=== PATIENT | male | born 1945 | race Two or more races ===

== ENCOUNTER 2018-01-29 19:11 | Inpatient (IN) | payer MEDICARE, MEDICAID ==
[2018-01-29 21:08] VITALS: BP 133/64
[2018-01-29] MEDS ORDERED: Non-Formulary Item 1 EA (Clonidine Hcl [Clonidine Hcl] 0.2 MG) PO PRN (22:42)
[2018-01-29] MEDS ORDERED: Polyvinyl Alcohol Ophth Soln 15 mL Bottle EACH EYE PRN (23:13)
[2018-01-30 06:36] LABS: CHOLESTEROL 140 mg/dL (<200); HDL -HIGH DENSITY LIPOPROTEIN 31 mg/dL (23-92); TRIGLYCERIDES 112 mg/dL (<150)
[2018-01-30] MEDS ORDERED: Levothyroxine 0.1 Mg Tab PO SCH (09:00)
[2018-01-30] MEDS ORDERED: MAGNESIUM OXIDE 400 MG PO SCH (09:00)
[2018-01-30] MEDS: Levothyroxine 0.1 Mg Tab PO SCH (09:26)
[2018-01-30] MEDS: Ferrous Sulfate 325 MG TAB PO SCH (09:28)
[2018-01-30] MEDS: Multivitamin Tab PO SCH (09:28)
[2018-01-30] MEDS: Atorvastatin Calcium 10 MG TAB PO SCH (20:28)
--- NOTE | 2018-01-30 21:06 | Psychiatric Evaluation ---
DATE OF SERVICE: 01/30/2018 JUSTIFICATION FOR HOSPITALIZATION: Confused, suspicious, striking out at staff. CHIEF COMPLAINT: "My name is Fidel." HISTORY OF PRESENT ILLNESS: A 73-year-old male, selectively mute, confused, dementia per documentation, noted to be striking out at nursing staff, unable to be cared for at a lower level of care, refusing to answer some questions, just telling me his name, essentially refusing to speak with me, drinking his coffee. Apparently, also with suicidal thoughts, refusing medications. PAST PSYCHIATRIC HISTORY: Dementia. SOCIAL HISTORY: The patient coming from what appears to be a [facility] facility. Unclear family support and involvement. CHEMICAL DEPENDENCY HISTORY: Unclear. MEDICATIONS: Noted. MEDICAL HISTORY: CHF, hypertension, hyperlipidemia, diabetes, GERD, BPH, CVA, anemia, hypothyroidism, seizure disorder, dementia. MENTAL STATUS EXAMINATION: Stated age. Fair eye contact. Awake, alert, only telling me his name, confused, disoriented, mumbling to self. No overt SI or HI, although the patient apparently came in with SI, unclear psychotic symptoms. Poor insight and judgment, poor impulse control. PROVISIONAL DIAGNOSES: Dementia, dementia with behaviors; psychosis, unspecified; mood, unspecified; anxiety, unspecified. MEDICAL: Please see full H and P. ESTIMATED LENGTH OF STAY: 5-7 days. ASSESSMENT: The patient combative, agitated, lashing out SI. PLAN: We will titrate and adjust medications. TREATMENT PLAN: Includes group as well as milieu therapy. CONDITIONS FOR DISCHARGE: Improved mood, improved affect, cessation of any SI, better control of her agitation. JOB# [id number]
--- NOTE | 2018-01-31 00:38 | History & Physical ---
ADMIT DATE: 01/30/2018 INTERNAL MEDICINE CONSULTATION The patient is a 73-year-old male, me being primary care physician, known to me. PAST MEDICAL HISTORY: Significant for CHF, hypertension, coronary artery disease, seizure disorder, hypothyroidism, peptic ulcer disease, enlarged prostate, arthritis, osteoporosis, hyperlipidemia and anemia. SOCIAL HISTORY: No history of smoking or alcohol abuse. FAMILY HISTORY: Not available. REVIEW OF SYSTEMS: The patient is very agitated. No recent seizure activity. Gait is unstable. No chest pain, no nausea, no vomiting, no abdominal pain. OBJECTIVE: VITAL SIGNS: Stable. LUNGS: Clear. HEART: First and second heart sounds are normal. No gallops. Systolic present. ABDOMEN: Soft, bowel sounds present and good. EXTREMITIES: Show arthritis. NEUROLOGIC: The patient is confused. MEDICAL DIAGNOSES: Include hypertension, CHF, coronary artery disease, seizure disorder, hypothyroidism, peptic ulcer disease, gastritis, arthritis, osteoporosis, enlarged prostate, hyperlipidemia and anemia. CURRENT MEDICATIONS: Include levothyroxine, Flomax, Keppra, Lasix, iron, Coreg, Lotensin, Lipitor, vitamin C, Norvasc, and Tylenol. JOB# [id number]
[2018-01-31] MEDS: Multivitamin Tab PO SCH (08:25)
[2018-01-31] MEDS: Ferrous Sulfate 325 MG TAB PO SCH (08:25)
[2018-01-31] MEDS: Sulfamethoxazole/TMP 800/160mg Tab PO SCH ×2 (09:10→17:08)
[2018-01-31] MEDS: Levothyroxine 0.1 Mg Tab PO SCH (09:10)
[2018-01-31] MEDS: Atorvastatin Calcium 10 MG TAB PO SCH (21:03)
--- NOTE | 2018-02-01 02:22 | Progress Notes ---
DATE: 01/31/2018 SUBJECTIVE: The patient in the hospital, striking out at staff, selectively mute, demented, thought blocking. The patient remains symptomatic. He is allowing changing, allowing ADLs, poorly oriented, disoriented, highly impulsive, irritable, mostly keeps to himself, seems to be mumbling to self, guarded, suspicious. At times, striking out at staff. At times, throwing water at staff, difficult to understand. ASSESSMENT: The patient remains symptomatic, still lashing out at staff, aggressive towards staff. PLAN: We will continue to monitor. The patient is with ongoing aggressive behaviors, violent behaviors. We will continue to monitor, continue Depakote. Consider the addition of Janine Colmenares. JOB# [id number]
[2018-02-01] MEDS: Multivitamin Tab PO SCH (09:18)
[2018-02-01] MEDS: Levothyroxine 0.1 Mg Tab PO SCH (09:18)
[2018-02-01] MEDS: Sulfamethoxazole/TMP 800/160mg Tab PO SCH ×2 (09:19→16:53)
[2018-02-01] MEDS: Ferrous Sulfate 325 MG TAB PO SCH (09:20)
[2018-02-01] MEDS ORDERED: Probiotic Screen MC PRN (11:00)
--- NOTE | 2018-02-01 18:32 | Progress Notes ---
DATE: 02/01/2018 INTERNAL MEDICINE CONSULTATION FOLLOWUP SUBJECTIVE: The patient is a 73-year-old male. Current medical problems include hypertension, CHF, coronary artery disease, seizure disorder, hypothyroidism, peptic ulcer disease, gastritis, arthritis, enlarged prostate, hyperlipidemia, and anemia symptoms. No new symptoms. No seizure activity, no vomiting, no diarrhea, no melena, no hematochezia. PHYSICAL EXAMINATION VITAL SIGNS: Stable. LUNGS: Clear. HEART: First and second heart sound normal. No gallop. Systolic murmur present. ABDOMEN: Soft, minimal epigastric tenderness. Bowel sounds are present and good. EXTREMITIES: Show arthritis. NEUROLOGIC: The patient has no focal motor deficits. MEDICAL DIAGNOSES: Remain the same. PLAN: Continue current medical management. Psych consult reviewed. JOB# [id number]
[2018-02-01] MEDS: Atorvastatin Calcium 10 MG TAB PO SCH (22:00)
--- NOTE | 2018-02-01 23:33 | Progress Notes ---
DATE: 02/01/2018 Dr. Cabezas covering for Dr. Kong. SUBJECTIVE: Chart reviewed and the patient interviewed. Also discussed the patient's condition with the staff and reviewed records and labs. The patient is still aggressive and he has episodes of striking out at staff. He also is still forgetful, still confused, and needs lots of redirections. Also, gets agitated especially when staff tried to help him with his ADLs, but at the same time, he allows staff to do so. The patient also is still agitated, withdrawn, and minimum interaction with others. He also still needs lots of redirections because of his agitation and aggression. ASSESSMENT: The patient is still psychotic and aggressive. TREATMENT PLAN: Continue to monitor his behavior and his condition closely. Also, continue working on his irritable mood and anger and continue to follow up closely. JOB# [id number]
--- NOTE | 2018-02-02 06:41 | Progress Notes ---
DATE: SUBJECTIVE: Chart reviewed and the patient interviewed. Also discussed the patient's condition with the staff and reviewed records and labs. The patient continued to be in irritable and angry mood. The patient also is still extremely agitated and restless and he is having difficulty with controlling his temper. The patient also seems to be depressed. He is still having intermittent thoughts of suicide and he is still having severe mood swings. He also feels hopeless. Also, gets with the staff during helping him with his ADLs. Otherwise, the patient is compliant with taking his medications with no side effects. ASSESSMENT: The patient is still aggressive and agitated. TREATMENT PLAN: Depakote blood level on 01/30/2018 was less than 10. We will increase Depakote to 500 mg twice a day and also we will start the patient on Seroquel 25 mg twice a day and we will continue to follow up his behavior and his condition closely. JOB# [id number]
--- NOTE | 2018-02-02 10:36 | Progress Notes ---
DATE: 02/02/2018 INTERNAL MEDICINE CONSULTATION FOLLOWUP SUBJECTIVE: The patient is a 73-year-old male. CURRENT MEDICAL: Include hypertension, CHF, coronary artery disease, seizure disorder, hypothyroidism, peptic ulcer disease, arthritis, enlarged prostate, anemia and hyperlipidemia. CHIEF COMPLAINT: No new symptoms. OBJECTIVE: VITAL SIGNS: Stable. LUNGS: Clear. HEART: First and second heart sounds are normal. No gallop. Systolic present. ABDOMEN: Soft. Bowel sounds are present and good. EXTREMITIES: Show arthritis. NEUROLOGIC: The patient has no additional focal deficit. Continue current medical management. Psych consult reviewed. JOB# [id number]
[2018-02-02] MEDS: Sulfamethoxazole/TMP 800/160mg Tab PO SCH ×3 (12:11→18:16)
[2018-02-02] MEDS: Multivitamin Tab PO SCH (12:26)
[2018-02-02] MEDS: Levothyroxine 0.1 Mg Tab PO SCH (12:26)
[2018-02-02] MEDS: Lactobacillus Rhamnosus GG 15 Billion CFU CAP.SPRINK PO SCH (18:14)
[2018-02-02] MEDS: Ferrous Sulfate 325 MG TAB PO SCH (18:14)
[2018-02-03] MEDS: Atorvastatin Calcium 10 MG TAB PO SCH ×2 (06:02→21:52)
[2018-02-03] MEDS: Ferrous Sulfate 325 MG TAB PO SCH (09:02)
[2018-02-03] MEDS: Lactobacillus Rhamnosus GG 15 Billion CFU CAP.SPRINK PO SCH (09:03)
[2018-02-03] MEDS: Multivitamin Tab PO SCH (09:04)
[2018-02-03] MEDS: Levothyroxine 0.1 Mg Tab PO SCH (09:04)
[2018-02-03] MEDS: Sulfamethoxazole/TMP 800/160mg Tab PO SCH ×2 (09:05→16:23)
--- NOTE | 2018-02-03 20:01 | Progress Notes ---
DATE: 02/03/2018 SUBJECTIVE: A 73-year-old male whose current medical problems include hypertension, CHF, coronary artery disease, seizure disorder, hypothyroidism, peptic ulcer disease, gastritis, arthritis, enlarged prostate, bipolar, hyperlipidemia and anemia symptoms. No new symptoms. No seizure activity, no vomiting, no diarrhea, no melena or hematochezia. No recent fall. OBJECTIVE: VITAL SIGNS: Stable. LUNGS: Clear. HEART: First and second heart sounds normal, ___ systolic present. ABDOMEN: Soft. Bowel sounds good. EXTREMITIES: Show arthritis. NEUROLOGIC: The patient has dementia. PLAN: Continue current medical management. Psych consult reviewed. JOB# [id number]
--- NOTE | 2018-02-03 22:05 | Progress Notes ---
DATE: 02/03/2018 SUBJECTIVE: Chart reviewed and the patient interviewed. Also, discussed the patient's condition with the staff and reviewed the records and labs. The patient still has periods of agitation and irritability. The patient also is still withdrawn. Also, still verbally abusive to staff and demanding and needs redirections. Otherwise, the patient seems to be slightly calmer since increased his Depakote and started Seroquel. ASSESSMENT: The patient is still psychotic. TREATMENT PLAN: We will continue monitoring his behavior and his condition closely. Also, continue adjusting psychotropic medications and continue to follow up. JOB# [id number]
[2018-02-04] MEDS: Lactobacillus Rhamnosus GG 15 Billion CFU CAP.SPRINK PO SCH (09:37)
[2018-02-04] MEDS: Levothyroxine 0.1 Mg Tab PO SCH (09:37)
[2018-02-04] MEDS: Ferrous Sulfate 325 MG TAB PO SCH (09:37)
[2018-02-04] MEDS: Multivitamin Tab PO SCH (09:41)
[2018-02-04] MEDS: Sulfamethoxazole/TMP 800/160mg Tab PO SCH ×2 (09:41→17:33)
--- NOTE | 2018-02-04 17:24 | Progress Notes ---
DATE: 02/04/2018 SUBJECTIVE: Chart reviewed and the patient interviewed. Also, discussed the patient's condition with the staff and reviewed records and labs. The patient is still easily agitated and he is still resisting care. The patient also is angry and in irritable mood and he is selectively mute. Also, is still aggressive with the staff while helping him with his ADLs. Also, yesterday, the patient refused to take his medications. ASSESSMENT: The patient is still psychotic and agitated. TREATMENT PLAN: Advised the patient to take his medications regularly. At the same time, we will continue to look. JOB# [id number]
--- NOTE | 2018-02-04 20:17 | Progress Notes ---
DATE: 02/04/2018 SUBJECTIVE: The patient is a 73-year-old male. CURRENT MEDICAL PROBLEMS: CHF, hypertension, coronary artery disease, seizure disorder, hypothyroidism, peptic ulcer disease, gastritis, arthritis, enlarged prostate, hyperlipidemia, anemia. No new symptoms. OBJECTIVE: VITAL SIGNS: Stable. LUNGS: Clear. HEART: First and sound heart sounds are normal. No gallops. Systolic present. ABDOMEN: Soft, bowel sounds present. EXTREMITIES: Show arthritis. NEUROLOGIC: The patient has dementia. PLAN: Continue current medical management. Psych consult reviewed. JOB# [id number]
[2018-02-04] MEDS: Atorvastatin Calcium 10 MG TAB PO SCH (21:41)
[2018-02-05] MEDS: Lactobacillus Rhamnosus GG 15 Billion CFU CAP.SPRINK PO SCH (09:30)
[2018-02-05] MEDS: Levothyroxine 0.1 Mg Tab PO SCH (09:30)
[2018-02-05] MEDS: Sulfamethoxazole/TMP 800/160mg Tab PO SCH ×2 (09:30→17:03)
[2018-02-05] MEDS: Ferrous Sulfate 325 MG TAB PO SCH (09:30)
[2018-02-05] MEDS: Multivitamin Tab PO SCH (09:30)
[2018-02-05] MEDS: Atorvastatin Calcium 10 MG TAB PO SCH (23:31)
--- NOTE | 2018-02-06 02:12 | Progress Notes ---
DATE: 02/05/2018 SUBJECTIVE: The patient currently in the hospital. Stating to me today that he does not know his name. He does not know who he is. He is not really answering any questions, lying in bed with a towel on his head, mostly withdrawn, selectively mute, striking out at nursing staff, refusing to answer some questions. Dr. Cabezas saw the patient over the weekend, noted to be easily agitated, resisting care, seems to be in a poor mood, seems to be responding to internal stimuli, ongoing safety concerns. Medications were reviewed including dosages and frequencies, mostly withdrawn, irritable, isolative. ASSESSMENT: The patient remains symptomatic, ongoing safety concerns. Stating that he does not know his name. I will continue to monitor, adjust, and titrate medications. JOB# [id number]
--- NOTE | 2018-02-06 05:42 | Progress Notes ---
DATE: 02/05/2018 INTERNAL MEDICINE CONSULTATION FOLLOWUP SUBJECTIVE: The patient most a 73-year-old male, current problems include CHF, hypertension, coronary artery disease, seizure disorder, hypothyroidism, peptic ulcer disease, gastritis, arthritis, enlarged prostate, hyperlipidemia and anemia. CHIEF COMPLAINT: No new symptoms. OBJECTIVE: VITAL SIGNS: Stable. LUNGS: Clear. No adventitious sounds. HEART: First and second heart sound normal. No gallop. Systolic present. ABDOMEN: Soft. Bowel sounds present and good. EXTREMITIES: Show arthritis. NEUROLOGIC: The patient has dementia. MEDICAL DIAGNOSES: Remained same. Continue current medical management. Psych consult reviewed. JOB# [id number]
[2018-02-06] MEDS: Lactobacillus Rhamnosus GG 15 Billion CFU CAP.SPRINK PO SCH (15:54)
[2018-02-06] MEDS: Levothyroxine 0.1 Mg Tab PO SCH (15:54)
[2018-02-06] MEDS: Ferrous Sulfate 325 MG TAB PO SCH (15:54)
[2018-02-06] MEDS: Multivitamin Tab PO SCH (15:55)
[2018-02-06] MEDS: Sulfamethoxazole/TMP 800/160mg Tab PO SCH ×2 (15:56→18:05)
--- NOTE | 2018-02-06 18:53 | Progress Notes ---
DATE: 02/06/2018 SUBJECTIVE: The patient in the hospital. Poorly oriented. Not answering any questions, sleeping, but arousable, thought blocking. It is unclear what his baseline is. He appears withdrawn, mostly in his room, sometimes talks, other times does not. Per staff, confused, withdrawn and isolative. ASSESSMENT: The patient remains withdrawn, not really answering questions, fully oriented. Difficult to assess as he is not really talking to me, whatsoever, resistant to care, at times, sometimes refusing treatment. PLAN: We will continue to monitor, attempt to increase collateral. JOB# [id number]
[2018-02-06] MEDS: Atorvastatin Calcium 10 MG TAB PO SCH (20:42)
--- NOTE | 2018-02-06 20:51 | Progress Notes ---
DATE: 02/06/2018 INTERNAL MEDICINE CONSULTATION FOLLOWUP SUBJECTIVE: The patient is a 73-year-old male. CURRENT MEDICAL PROBLEMS: Include hypertension, CHF, coronary artery disease, seizure disorder, hypothyroidism, peptic ulcer disease, gastritis, arthritis, enlarged prostate, hyperlipidemia and anemia. No new symptoms. OBJECTIVE: VITAL SIGNS: Stable. LUNGS: Clear. HEART: First and second heart sounds normal. No gallop. Systolic present. ABDOMEN: Soft. Bowel sounds are present and good. EXTREMITIES: Show arthritis. NEUROLOGIC: The patient has dementia. PLAN: Continue current medical management. Psych consult reviewed. JOB# [id number]
[2018-02-07] MEDS: Ferrous Sulfate 325 MG TAB PO SCH (09:05)
[2018-02-07] MEDS: Lactobacillus Rhamnosus GG 15 Billion CFU CAP.SPRINK PO SCH (09:06)
[2018-02-07] MEDS: Levothyroxine 0.1 Mg Tab PO SCH (09:06)
[2018-02-07] MEDS: Multivitamin Tab PO SCH (09:07)
[2018-02-07] MEDS: Sulfamethoxazole/TMP 800/160mg Tab PO SCH ×2 (09:07→17:30)
--- NOTE | 2018-02-07 16:06 | Progress Notes ---
DATE: 02/07/2018 SUBJECTIVE: The patient in the hospital, poor orientation, selectively mute, only answering to his name. Otherwise, not answering any questions. He is eating on his own volition, mostly in bed, seems disoriented, sometimes covering his face with a towel, bizarre presentation, possibly may be in fact approaching his baseline. No combative behaviors, no agitated behaviors. Per family welfare social work professor, the patient had been residing at a care facility in [place], a place called [facility]. ASSESSMENT: The patient presenting due to increased agitation, throwing things at the facility. He has been calmer, more cooperative. PLAN: We will continue to monitor, adjust and titrate medications. JOB# [id number]
[2018-02-07] MEDS: Atorvastatin Calcium 10 MG TAB PO SCH (20:51)
--- NOTE | 2018-02-08 05:14 | Progress Notes ---
DATE: 02/07/2018 INTERNAL MEDICINE CONSULTATION FOLLOWUP SUBJECTIVE: The patient is a 73-year-old male. Current medical problems include diabetes mellitus, angiopathy, neuropathy, hypertension, COPD, congestive heart failure, seizure disorder, enlarged prostate, anemia, COPD, hyperlipidemia, arthritis, and hypothyroidism. CHIEF COMPLAINT: No new symptoms. Blood sugar is stable. OBJECTIVE: VITAL SIGNS: Stable. LUNGS: Show occasional rhonchi, occasional crepitation, no bronchial breathing. HEART: First and second heart sounds normal. No gallop. Systolic present. ABDOMEN: Soft. Bowel sounds present. EXTREMITIES: Show arthritis. NEUROLOGIC: The patient has dementia. PLAN: Continue current medical management. Psych consult reviewed. JOB# [id number]
[2018-02-08] MEDS: Ferrous Sulfate 325 MG TAB PO SCH (09:55)
[2018-02-08] MEDS: Levothyroxine 0.1 Mg Tab PO SCH (09:57)
[2018-02-08] MEDS: Lactobacillus Rhamnosus GG 15 Billion CFU CAP.SPRINK PO SCH (09:57)
[2018-02-08] MEDS: Multivitamin Tab PO SCH (09:58)
--- NOTE | 2018-02-08 18:22 | Progress Notes ---
DATE: 02/08/2018 INTERNAL MEDICINE CONSULTATION FOLLOWUP HISTORY OF PRESENT ILLNESS: The patient is a 73-year-old male with past medical history significant for diabetes mellitus, hypertension, COPD, CHF, seizure disorder, enlarged prostate, anemia, hypothyroidism, hyperlipidemia, and arthritis. CHIEF COMPLAINT: No new symptoms. Blood sugars are stable. PHYSICAL EXAMINATION: VITAL SIGNS: Stable. LUNGS: Show occasional rhonchi, occasional crepitation, no bronchial breathing. HEART: First and second heart sounds normal. No gallop. Systolic present. ABDOMEN: Soft. Bowel sounds are good. EXTREMITIES: Show arthritis. NEUROLOGIC: The patient has dementia. Continue current medical management. Psych consult reviewed. JOB# [id number]
[2018-02-08] MEDS: Atorvastatin Calcium 10 MG TAB PO SCH (21:16)
--- NOTE | 2018-02-09 04:54 | Progress Notes ---
DATE: 02/08/2018 SUBJECTIVE: A 73-year-old male, currently in the hospital, fairly well last night, still resistant to nursing care. No behavioural ____. No agitation, no escalation of behaviors, sometimes get irritable, concerns for impulse control. The patient not speaking with me, refusing to speak with me today mostly isolative, guarded, hopeless, unpredictable, sometimes refusing vitals, but is eating well. The patient did a cup of water at [facility] over the past 24 hours. ASSESSMENT: The patient with ongoing outbursts. In general, calmer, but still throwing things at staff, not safe for a lower level of care, refusing to speak with me. MEDICATIONS: Reviewed. JOB# [id number]
[2018-02-09] MEDS: Lactobacillus Rhamnosus GG 15 Billion CFU CAP.SPRINK PO SCH (13:48)
[2018-02-09] MEDS: Levothyroxine 0.1 Mg Tab PO SCH (13:48)
[2018-02-09] MEDS: Ferrous Sulfate 325 MG TAB PO SCH (13:48)
[2018-02-09] MEDS: Multivitamin Tab PO SCH (13:49)
--- NOTE | 2018-02-09 17:32 | Discharge Summary ---
DATE OF DISCHARGE: 02/09/2018 JUSTIFICATION FOR HOSPITALIZATION: Confused suspicious, striking out at staff. HISTORY OF PRESENT ILLNESS: A 73-year-old male, selectively mute, confused, demented for documentation, striking out at staff, unable to be cared for at a lower level of care. Also apparently with suicidal thoughts, refusing medications. PAST PSYCHIATRIC HISTORY: Dementia, unspecified mood disorder. SOCIAL HISTORY: The patient coming in from assisted. MEDICATIONS: Reviewed. MEDICAL HISTORY: Noted. MENTAL STATUS EXAMINATION: Please see full psych eval for details. PROVISIONAL DIAGNOSIS: Dementia with dementia behaviors; psychosis, unspecified; mood, unspecified; anxiety, unspecified. MEDICAL: Please see full H and P. HOSPITAL COURSE: After initial assessment, the patient was admitted to the hospital, started on medications, Seroquel for example, Depakote, atorvastatin, benazepril. The patient on Namenda. Over the course of the hospitalization, his mood improved, affect improved. Seems to be getting along better with staff and peers. Sometimes resistant to care, but no longer agitated or aggressive, still angry at times; however, no combative behaviors, not striking out at staff. The patient denying any SI, no evidence of any psychotic symptoms, is not feeling targeted. The patient likely approaching his baseline, toward the latter end of his hospitalization. No dangerousness noted. CONDITION UPON DISCHARGE: Improved better allowance of ADLs. Mood "okay." Affect flat. The patient is confused, disoriented on exam, impoverished thought processes and impoverished speech. No SI, no HI. No psychotic symptoms, no delusions. PROVISIONAL DIAGNOSES: Dementia, dementia with behavioral disturbances; psychosis, unspecified; mood, unspecified; anxiety, unspecified. MEDICAL: Please see full H and P. PROGNOSIS: The patient follows up with outpatient mental health services and remains compliant with treatment. Prognosis will improve, otherwise guarded. [facility]# [id number]
--- NOTE | 2018-02-09 22:48 | Progress Notes ---
DATE: 02/09/2018 INTERNAL MEDICINE CONSULTATION FOLLOWUP SUBJECTIVE: The patient is a 73-year-old male. Current medical problems include diabetes mellitus, angiopathy, neuropathy, hypertension, COPD, congestive heart failure, seizure disorder, enlarged prostate, anemia, hypothyroidism, peptic ulcer disease, gastritis, hyperlipidemia. No new symptoms. Blood sugar stable. No seizure activity. OBJECTIVE: VITAL SIGNS: Stable. LUNGS: Occasional rhonchi, occasional crepitation, no bronchial breathing. HEART: First and second heart sounds normal. No gallops. Systolic present. ABDOMEN: Soft. Bowel sounds are present and good. EXTREMITIES: Show arthritis. NEUROLOGIC: The patient has dementia. PLAN: Continue current medical management. JOB# [id number]
--- NOTE | 2018-02-11 06:08 | Progress Notes ---
DATE: INTERNAL MEDICINE CONSULTATION FOLLOWUP SUBJECTIVE: The patient is a 73-year-old male. CURRENT MEDICAL PROBLEMS: Include diabetes mellitus, angiopathy, diabetic neuropathy, hypertension, COPD, congestive heart failure, seizure disorder, enlarged prostate, anemia, hypothyroidism, hyperlipidemia, peptic ulcer disease, arthritis, osteoporosis. CHIEF COMPLAINT: No new symptoms. No seizure activity, no acute infection. Blood sugars are stable. OBJECTIVE: VITAL SIGNS: Stable. LUNGS: Show occasional rhonchi, occasional crepitation, no bronchial breathing. No changes. HEART: First and second heart sounds normal. No gallops. Systolic present. ABDOMEN: Soft, minimal epigastric tenderness. Bowel sounds present and good. EXTREMITIES: Show arthritis. NEUROLOGIC: The patient has dementia. PLAN: Continue current medical management. Psych consult reviewed. JOB# [id number]
--- NOTE | 2018-02-12 03:29 | Progress Notes ---
DATE: INTERNAL MEDICINE CONSULTATION FOLLOWUP DATE OF SERVICE: 02/11/2018. SUBJECTIVE: The patient is a 73-year-old male, current medical problems includes diabetes mellitus, angiopathy, neuropathy, hypertension, COPD, congestive heart failure, seizure disorder, enlarged prostate, anemia, hypothyroidism, peptic ulcer disease, gastritis, arthritis, hyperlipidemia. No new symptoms. OBJECTIVE: VITAL SIGNS: Stable. LUNGS: Show occasional rhonchi, occasional crepitation, no bronchial breathing. HEART: First and second heart sounds normal. No gallop. Systolic present. ABDOMEN: Soft, minimal epigastric tenderness. Bowel sounds are good. EXTREMITIES: Show arthritis. NEUROLOGIC: The patient has dementia. PLAN: Continue current medical treatments. Psych consult reviewed. JOB# [id number]
--- NOTE | 2018-02-13 06:44 | Progress Notes ---
DATE: INTERNAL MEDICINE CONSULTATION FOLLOWUP The patient is a 73-year-old male. Current medical problems include seizure disorder, enlarged prostate, anemia, COPD, CHF, diabetes mellitus type 2, angiopathy, neuropathy, hypertension, hypothyroidism, hyperlipidemia, and arthritis. CHIEF COMPLAINT: No new symptoms. No vomiting, no diarrhea, no shortness of breath. No new urinary symptoms. Blood sugars are stable. OBJECTIVE: VITAL SIGNS: Stable. LUNGS: Show occasional rhonchi, occasional crepitation, no bronchial breathing. HEART EXAM: First and second heart sounds normal. No gallop. Systolic present. ABDOMEN: Soft. Bowel sounds present and good. EXTREMITIES: Show arthritis. NEUROLOGIC: The patient has no focal motor deficits. MEDICAL DIAGNOSES: Remain the same. PLAN: Continue current medical management. Psych consult reviewed. JOB# [id number]
== END 2018-02-09 16:30 | DRG 885 ==
LOC: GERO 19:11
PROVIDERS: ADMIT Psychiatry & Neurology Psychiatry; ATTEND Psychiatry & Neurology Psychiatry
DX: F29 Unspecified psychosis not due to a substance or known physiological condition (principal); I11.0 Hypertensive heart disease with heart failure; F03.91 Unspecified dementia, unspecified severity, with behavioral disturbance; I50.9 Heart failure, unspecified; E78.5 Hyperlipidemia, unspecified; K21.9 Gastro-esophageal reflux disease without esophagitis; N40.0 Benign prostatic hyperplasia without lower urinary tract symptoms; E03.9 Hypothyroidism, unspecified; G40.909 Epilepsy, unspecified, not intractable, without status epilepticus; F39 Unspecified mood [affective] disorder; F41.9 Anxiety disorder, unspecified; I25.10 Atherosclerotic heart disease of native coronary artery without angina pectoris; K27.9 Peptic ulcer, site unspecified, unspecified as acute or chronic, without hemorrhage or perforation; K29.70 Gastritis, unspecified, without bleeding; J44.9 Chronic obstructive pulmonary disease, unspecified; E11.40 Type 2 diabetes mellitus with diabetic neuropathy, unspecified; E11.51 Type 2 diabetes mellitus with diabetic peripheral angiopathy without gangrene; Z86.73 Personal history of transient ischemic attack (TIA), and cerebral infarction without residual deficits
CPT/HCPCS: 36415-UA; 80061-TC; 80164-TC; 83036-90; 84443-TC; Z7610